=== PATIENT | male | born 1980 | race Caucasian/White ===

== ENCOUNTER 2023-10-22 17:54 | Emergency (ER) | payer OTHER, SELFPAY ==
[2023-10-22 18:02] VITALS: BP 144/74
--- NOTE | 2023-10-22 23:04 | ED.GENMED ---
History of Present Illness
General
Chief Complaint: Throat Problem
Source: patient
Exam Limitations: none
Time Seen by Provider: 10/22/23 20:06
Nursing documentation reviewed up to this point in time: agreed with
Travel History
Have you had any contact with someone who has COVID-19?: No
Do you have any symptoms of coronavirus? Fever > 100 degrees, chills, cough, shortness of breath, sore throat, loss of taste or smell, muscle aches, or headache?: No
History of Present Illness
History of Present Illness:
42-year-old male with history of being weaned off methadone, states he has 'lumps in my cheeks and in my throat.' He also has pain along the right side of his neck and 'my tongue feels like I burned it.'
He states he had an esophagram at [facility] on 06/2023 which was clear and he was told he had acid reflux.
He states he was told he is too young to have oral cancer. He smoked for 30 years and stopped 4 months ago. He denies alcohol intake.
Past History
Past History
ED Past Medical History: Other (Hep C, substance abuse)
ED Past Surgical History: None
Social History
Tobacco: Smoker
Alcohol: Occasional
Drug: Former user and Marijuana
Personal: Single
Living: with family
Employment: Employed
Review of Systems
Review of Systems
Allergies reviewed?: Yes
All Other Systems: ROS reviewed and negative except as documented in HPI and ROS
Constitutional: Denies fever
EENT: Reports other ('bumps' in mouth and throat); Denies mouth pain or mouth swelling
Respiratory: Reports no symptoms
Cardiac: Denies chest pain
ABD/GI: Denies abdominal pain or nausea
Musculoskeletal: Reports no symptoms
Skin: Reports no symptoms
Neurological: Reports no symptoms
Phy Exam
Physical Exam
Physical Exam:
GENERAL: No acute distress. A&Ox3.
CONSTITUTIONAL: Afebrile.
EYES: clear, conjunctivae normal
Neck: Supple, mild tenderness to palpate along right side neck, full ROM, no palpable lymphadenopathy, speaking and swallowing well.
ENMT: moist mucus membranes, Pharynx nl, small patch of tiny skin colored lesions on right soft palate, no open areas, no swelling, no bleeding or drainage. Tonsils appear normal. Tongue appears normal. TMs normal. Good dentition.
RESPIRATORY: Regular respirations, nonlabored, lungs clear.
CARDIOVASCULAR: Regular rate and rhythm, no murmurs, no rubs.
MUSCULOSKELETAL: Moves with ease. Well perfused.
SKIN: Warm, dry, pink
PSYCH: Normal mood and affect. Well kept, interactive and appropriate
NEUROLOGIC: Awake, alert and oriented. No focal neurological deficits
Course
Orders/Labs/Results
Orders:
Orders
10/22/23 20:19
CR Soft Tissue Neck Urgent
Comment:
Reason For Exam: feels swelling front of throat, right side neck
Vital Signs
Initial and Last Documented VS:
Initial Vital Signs
Temp Pulse Resp BP Pulse Ox
97.9 F 81 20 144/74 97
10/22/23 18:02 10/22/23 18:02 10/22/23 18:02 10/22/23 18:02 10/22/23 18:02
Last Documented Vital Signs
Temp Pulse Resp BP Pulse Ox
97.9 F 68 20 126/77 97
10/22/23 18:02 10/22/23 23:11 10/22/23 18:02 10/22/23 23:11 10/22/23 23:11
MDM/Problems Addressed
Differential Diagnosis Includes:
swelling of esophagus/trachea, obstruction
MDM/Problems Addressed:
42-year-old male with history of being weaned off methadone, states he has 'lumps in my cheeks and in my throat.' He also has pain along the right side of his neck and 'my tongue feels like I burned it.'
He states he had an esophagram at [facility] on 06/2023 which was clear and he was told he had acid reflux.
He states he was told he is too young to have oral cancer. He smoked for 30 years and stopped 4 months ago. He denies alcohol intake.
Patient appears in no distress. No difficulty speaking or swallowing.
He is insistent that he has lesions in his mouth and trouble speaking and swallowing
There are no significant lesions, a few very tiny patches of skin colored lesions on the right soft palate, nothing pathologic appearing, no swelling, no lymphadenopathy, no trismus, has full range of motion of neck
Patient insistent that there is something in his throat
Soft tissue lateral neck: Radiology report read, no radiologic evidence for soft tissue abnormality in the neck.
Patient reassured, referred to ENT
*Critical Care Note
Total Time (30-74mins, 75-104mins- exclusive of procedures): Not Applicable
ED Attending Note
-
Portions of this chart may have been created with voice recognition software.� Occasional wrong word or��sound alike� substitutions may have occurred due to the inherent limitations of voice recognition software.
Discharge Plan
Departure
Patient Disposition: Home (Routine Discharge)
Date of Disposition: 10/22/23
Time of Disposition: 22:59
Patient with high blood pressure during this ER visit?: No
Condition: Good
Discharge Problem:
Globus sensation
Instructions: Dysphagia (DC)
Prescriptions:
No Action
methadone 10 MG tablet
170 mg PO DAILY
ciprofloxacin HCl 1 DROP drops
1 drp ophthalmic (eye) Q4H Qty: 1 0RF
Referrals:
Carlos Concepcion MD [Active] - Next open appointment
NONE,* [Family Provider] -
Activity Restrictions/Additional Instructions:
As we discussed, I see nothing worrisome in your exam.
The x-ray of your neck shows nothing worrisome, specifically nothing obstructing your airway or your esophagus.
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
Interventions
Interventions:
*Risk Screen - Suicide Last Done: 10/22/23 19:58
*General Assessment Last Done: 10/22/23 19:58
*Neglect/Abuse Screening Last Done: 10/22/23 19:58
ED- Fall Risk Assessment Last Done: 10/22/23 19:58
*ED COVID-19 Vaccine History Last Done: 10/22/23 18:11
*Nursing Disposition Last Done: 10/22/23 23:11
ED-EENT Assessment Last Done: 10/22/23 19:58
ED- Pulmonary Assessment Last Done: 10/22/23 19:58
Discharge Date and Time
Discharge Date/Time: 10/22/23 23:12
[2023-10-22 23:08] VITALS: BP 126/77
[2023-10-22 23:11] VITALS: BP 126/77
== END 2023-10-22 23:12 | disposition home or self-care (01) ==
LOC: EMR 17:54
PROVIDERS: EMERGENCY PHYSICIAN Emergency Medicine
DX: R09.A2 Foreign body sensation, throat (principal); F17.200 Nicotine dependence, unspecified, uncomplicated; K21.9 Gastro-esophageal reflux disease without esophagitis
CPT/HCPCS: 99283; 70360

== ENCOUNTER 2024-07-10 13:49 | Emergency (ER) | payer OTHER, SELFPAY ==
[2024-07-10 13:50] VITALS: BP 124/83
[2024-07-10 14:48] VITALS: BMI 24.5
--- NOTE | 2024-07-10 15:01 | ED.GENMED ---
History of Present Illness
General
Chief Complaint: Wound Check/Suture Removal
Time Seen by Provider: 07/10/24 13:57
History of Present Illness
History of Present Illness:
43-year-old male presents to the emergency department for evaluation of left thumb redness and swelling, he had an injury 1 week ago and sutures were placed by an outside urgent care. He is concerned that the wound appears to be red and warm and
has difficulty flexing the thumb. No fevers or chills
Past History
Past History
ED Past Medical History: Other (Hep C, substance abuse)
ED Past Surgical History: None
Social History
Tobacco: Smoker
Alcohol: Occasional
Drug: Former user and Marijuana
Personal: Single
Living: with family
Employment: Employed
Review of Systems
Review of Systems
Allergies reviewed?: Yes
All Other Systems: ROS reviewed and negative except as documented in HPI and ROS
Phy Exam
Physical Exam
Physical Exam:
GEN: Well appearing, NAD, WDWN
HEENT: Oral mucosa moist, no scleral icterus
Cardiac: Regular rate
Lung: No respiratory distress, no tachypnea
MSK: No gross deformity or injuries
Skin: Good color, no pallor or jaundice, mild erythema to the extensor surface of the left thumb assessment aspiration, 5 intact external sutures with mild dehiscence, no lisa purulent discharge, no diffuse digital edema
Neuro: AO x3, moves all extremities freely
Psych: Calm, cooperative
Course
Orders/Labs/Results
Orders:
Orders
07/10/24 14:07
CR Finger(s)/thumb Min 2 Vw Lt Urgent
Comment:
Reason For Exam: swelling/pain
07/10/24 15:14
Mupirocin [Bactroban 2% Ointment] 1 applic TOPICAL NOW STA
Vital Signs
Initial and Last Documented VS:
Initial Vital Signs
Temp Pulse Resp BP Pulse Ox
97.8 F 60 16 124/83 98
07/10/24 13:50 07/10/24 13:50 07/10/24 13:50 07/10/24 13:50 07/10/24 13:50
Last Documented Vital Signs
Temp Pulse Resp BP Pulse Ox
97.8 F 60 16 124/83 98
07/10/24 13:50 07/10/24 13:50 07/10/24 13:50 07/10/24 13:50 07/10/24 13:50
MDM/Problems Addressed
MDM/Problems Addressed:
Sutures removed and wound irrigated, will treat with antibiotics both topical and oral
*Critical Care Note
Total Time (30-74mins, 75-104mins- exclusive of procedures): Not Applicable
ED Attending Note
-
Portions of this chart may have been created with voice recognition software.� Occasional wrong word or��sound alike� substitutions may have occurred due to the inherent limitations of voice recognition software.
Discharge Plan
Departure
Patient Disposition: Home (Routine Discharge)
Date of Disposition: 07/10/24
Time of Disposition: 15:01
Patient with high blood pressure during this ER visit?: No
Discharge Problem:
Infected wound
Instructions: Wound Care (DC)
Prescriptions:
New
cephalexin 500 mg capsule
500 mg PO Q6H 7 Days Qty: 28 0RF
mupirocin 2 % ointment
1 applic topical TID Qty: 15 0RF
No Action
methadone 10 MG tablet
170 mg PO DAILY
ciprofloxacin HCl 1 DROP drops
1 drp ophthalmic (eye) Q4H Qty: 1 0RF
Referrals:
Ozzy Lagunas MD [Family Provider] -
Interventions
Interventions:
*Risk Screen - Suicide Last Done: 07/10/24 14:49
*General Assessment Last Done: 07/10/24 14:49
*Neglect/Abuse Screening Last Done: 07/10/24 14:49
ED- Fall Risk Assessment Last Done: 07/10/24 14:50
*ED COVID-19 Vaccine History Last Done: 07/10/24 14:49
*Nursing Disposition Last Done: 07/10/24 15:49
ED-Skin Assessment Last Done: 07/10/24 14:50
Discharge Date and Time
Discharge Date/Time: 07/10/24 15:50
Print Language: CITIZEN OF [place]
== END 2024-07-10 15:50 | disposition home or self-care (01) ==
LOC: EMR 13:49
PROVIDERS: EMERGENCY PHYSICIAN Emergency Medicine; FAMILY PHYSICIAN Internal Medicine
DX: S61.002A Unspecified open wound of left thumb without damage to nail, initial encounter (principal); L08.9 Local infection of the skin and subcutaneous tissue, unspecified; X58.XXXA Exposure to other specified factors, initial encounter; F17.200 Nicotine dependence, unspecified, uncomplicated
CPT/HCPCS: 99283; 73140

== ENCOUNTER 2024-08-20 20:16 | Emergency (ER) | payer OTHER, SELFPAY ==
[2024-08-20 20:24] VITALS: BP 117/57
--- NOTE | 2024-08-20 21:05 | ED.SKININJ ---
HPI-Injury
General
Chief Complaint: Skin Surface Trauma
Source: patient
Exam Limitations: none
Time Seen by Provider: 08/20/24 20:34
History of Present Illness-Injury
Is this injury a work related problem?: No
Is pt an associate of [facility]?: No
Initial Injury comments:
This is a 43 year old male that comes in with c/o cuts to the thumb and index finger. States that he was deboning a piece of meat and he put the knife down and turned. States that he must have brushed the knife and it started to fall and he went to
grab the knife. State that it went under the index finger and cut the thumb and pocked the cut the index finger. Denies any fever, chills, chest pain, SOB, abd pain, nausea, vomiting, diarrhea, headache and dizziness.
Past History
Past History
ED Past Medical History: Psychiatric (Depression) and Other (Hep C and was treated, substance abuse)
ED Past Surgical History: Orthopedic (Right hand surgery, Right foot surgery)
Social History
Tobacco: Former smoker
Alcohol: Occasional
Drug: Former user and Marijuana
Personal: Single
Living: with family
Employment: Employed
Review of Systems
Review of Systems
All Other Systems: ROS reviewed and negative except as documented in HPI and ROS
Constitutional: Reports no symptoms; Denies fever or chills
EENT: Reports no symptoms
Respiratory: Reports no symptoms; Denies cough or trouble breathing
Cardiac: Reports no symptoms; Denies chest pain
ABD/GI: Reports no symptoms; Denies abdominal pain, nausea, vomiting or diarrhea
: Reports no symptoms
Musculoskeletal: Reports no symptoms
Skin: Reports other (laceration to the right index finger and superficial laceration right thumb)
Neurological: Reports no symptoms
Psychiatric: Reports no symptoms
Skin Exam
Laceration
Right Proximal Second Finger:
Length in cm: 2
Orientation: horizontal
Type of Laceration: simple
Any active bleeding?: low grade venous oozing
Distal skin color and temperature: normal-warm & good color
Normal distal neurovascular exam: Yes
Range of motion: full
Right Middle First Finger:
Length in cm: 2.5
Orientation: horizontal
Type of Laceration: simple
Any active bleeding?: low grade venous oozing
Distal skin color and temperature: normal-warm & good color
Normal distal neurovascular exam: Yes
Range of motion: full
Phy Exam
General Physical Exam
General Presentation: well appearing and no apparent distress
General age: appears stated age
General Skin: warm and dry
General Habitus: normal
General Mental: alert
General Hydration: appears well hydrated
Eye Exam
Eye Exam: EOMI
Musculoskeletal Exam
Musculoskeletal Exam: full ROM
Skin Exam
Skin Exam: normal color, warm/dry, no rash, no petechia and laceration (Small to the right index finger, Patient able to bend finger without difficulty. Superficial laceration to the right thumb. )
Psychiatric Exam
Psychiatric Exam: normal mood/affect
Course
Orders/Labs/Results
Orders:
Orders
08/20/24 21:05
Tetanus/Diphth/Acelpertussis [Adacel] 0.5 ml IM .ONCE ONE
Vital Signs
Initial and Last Documented VS:
Initial Vital Signs
Temp Pulse Resp BP Pulse Ox
98.0 F 63 19 117/57 98
08/20/24 20:24 08/20/24 20:24 08/20/24 20:24 08/20/24 20:24 08/20/24 20:24
Last Documented Vital Signs
Temp Pulse Resp BP Pulse Ox
98.0 F 63 19 117/57 98
08/20/24 20:24 08/20/24 20:24 08/20/24 20:24 08/20/24 20:24 08/20/24 20:24
Procedures
Laceration Closure
Right Second Finger:
Status of Wound: clean
Size of Wound in cm: 2
Description of Wound Edges: sharp
Preparation: cleaned with saline
Anesthesia: 1% Lidocaine
Revision/Debridement: routine- no revision
Wound exploration: explored to base- no FB
Type of Closure: single layer closure
Skin Closure Material: 4-0 nylon
Number of sutures: 2
Right First Finger:
Status of Wound: clean
Size of Wound in cm: 2.5
Description of Wound Edges: sharp
Preparation: cleaned with saline
Wound exploration: explored to base- no FB
Type of Closure: Dermabond-skin glue
MDM/Problems Addressed
Differential Diagnosis Includes:
laceration index finger and Thumb right hand
MDM/Problems Addressed:
This is a 43 year old male that comes in with c/o cuts to the thumb and index finger on the right hand from a knife
Right index finger was suture and the thumb is superficial and was glued with steri strips. Patient was given Adacel. Will have patient follow up with the family doctor in 10-14 days for suture removal. Patient to keep the fingers dry for the next
24 hours and then gently pat the area. Patient is not to pull on the steri strips as they will fall off in about 7 days. Patient to return with any concerns.
Chronic conditions affecting care:
NA
Acute Exacerbation and/or Progression of Chronic Illness:
NA
*Pulse Oximetry
Patient hypoxic: no
*EKG
Interpreted by ED Provider?: NA
Rate: EKG- N/A
*Flight Controls Engineer Interpretation
Rate: Flight Controls Engineer- N/A
*Critical Care Note
Total Time (30-74mins, 75-104mins- exclusive of procedures): Not Applicable
ED Attending Note
-
Portions of this chart may have been created with voice recognition software.� Occasional wrong word or��sound alike� substitutions may have occurred due to the inherent limitations of voice recognition software.
Discharge Plan
Departure
Patient Disposition: Home (Routine Discharge)
Date of Disposition: 08/20/24
Time of Disposition: 21:16
Patient with high blood pressure during this ER visit?: No
Condition: Good
Covid-19: Not Applicable
Discharge Problem:
Laceration of right index finger, Superficial laceration of thumb
Instructions: Laceration Repair With Glue (DC), Laceration Repair With Stitches (DC)
Prescriptions:
No Action
methadone 10 MG tablet
170 mg PO DAILY
ciprofloxacin HCl 1 DROP drops
1 drp ophthalmic (eye) Q4H Qty: 1 0RF
cephalexin 500 mg capsule
500 mg PO Q6H 7 Days Qty: 28 0RF
mupirocin 2 % ointment
1 applic topical TID Qty: 15 0RF
Referrals:
Ozzy Lagunas MD [Family Provider] - Follow up in 10 days
Activity Restrictions/Additional Instructions:
As discussed, your index finger has 2 suture that will need to be removed in the next 10-14 days. The thumb has been glued with steri strips and they will fall off on there own. If you pull them the glue will come off with it. Please keep your hand
dry for the next 24 hours and then after this you may gently pat the area but do not scrub. You may use Tylenol or Ibuprofen as needed for pain. IF YOU HAVE ANY REDNESS, SWELLING OR YOU HAVE ANY OTHER CONCERNS PLEASE RETURN TO THE EMERGENCY ROOM.
Interventions
Interventions:
*Risk Screen - Suicide Last Done: 08/20/24 20:24
*General Assessment Last Done: 08/20/24 20:24
*Neglect/Abuse Screening Last Done: 08/20/24 20:24
Discharge Date and Time
Print Language: [id number]
[2024-08-20 21:54] VITALS: BP 111/61
[2024-08-20] MEDS: ADACEL 0.5 ML IM (21:58)
== END 2024-08-20 22:02 | disposition home or self-care (01) ==
LOC: EMR 20:16
PROVIDERS: EMERGENCY PHYSICIAN Emergency Medicine; FAMILY PHYSICIAN Internal Medicine
DX: S61.011A Laceration without foreign body of right thumb without damage to nail, initial encounter (principal); S61.210A Laceration without foreign body of right index finger without damage to nail, initial encounter; W26.0XXA Contact with knife, initial encounter; Z23 Encounter for immunization; F32.A Depression, unspecified; F19.10 Other psychoactive substance abuse, uncomplicated; Z86.19 Personal history of other infectious and parasitic diseases; Z87.891 Personal history of nicotine dependence
CPT/HCPCS: 99282; 12001; 90471; 90715

== ENCOUNTER 2025-03-22 00:57 | Emergency (ER) | payer OTHER, SELFPAY ==
[2025-03-22 01:01] VITALS: BP 123/69
[2025-03-22 01:31] VITALS: BMI 23.2
--- NOTE | 2025-03-22 02:15 | ED.GENMED ---
History of Present Illness
General
Chief Complaint: Eye Problems
Source: patient
Exam Limitations: none
Time Seen by Provider: 03/22/25 01:41
Nursing documentation reviewed up to this point in time: agreed with
History of Present Illness
History of Present Illness:
This is a 44-year-old gentleman with remote history of opioid use disorder, maintained on methadone. Remote history of hepatitis C previously treated. He presents with complaints of left eye pain, foreign body sensation and notes while at work
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 Mild irritation initially which promptly resolved but then this evening around 6 PM he developed recurrent left eye irritation, tearing and
foreign body sensation. He denies vision difficulty. No headache. He has attempted to rinse his eye with only mild temporary relief.
Up-to-date with Tdap having received this August 2024.
He does not wear corrective lenses nor contacts.
Past History
Past History
ED Past Medical History: Psychiatric (Depression) and Other (Hep C and was treated, substance abuse)
ED Past Surgical History: Orthopedic (Right hand surgery, Right foot surgery)
Social History
Tobacco: Former smoker
Alcohol: Occasional
Drug: Former user and Marijuana
Personal: Single
Living: with family
Employment: Employed
Family History
Family History: Other (Noncontributory)
Phy Exam
Physical Exam
Physical Exam:
GENERAL: 44-year-old gentleman appears his stated age. Awake and alert, pleasant, appears mildly uncomfortable, intermittently dabbing and rubbing at his left eye. is accompanying.
EYE: pupils equal and reactive. Extraocular muscles intact. Mild tearing from left eye. There is no chemosis. Mild conjunctival injection of left eye. Visual acuity grossly intact bilaterally. Anicteric. Significant improvement in left eye
discomfort after tetracaine instilled. Left eye examined with fluorescein stain and Mancilla lamp revealing a tiny superficial corneal abrasion lateral aspect. No foreign body visualized. Upper lid everted and blind sweep with cotton swab under
upper lid reveals no foreign body.
NECK: Supple, nontender, no meningismus, no significant adenopathy.
ENT: oral mucosa is moist.
CARDIAC: Regular rate and rhythm. no murmur.
LUNGS: no acute respiratory distress
NEUROLOGICAL: Alert and oriented x3, no focal neuro deficits. Gait is ibrahim and steady.
SKIN: Warm and dry, normal color, skin intact. No rash.
MUSCULOSKELETAL: No C/C/E. Nontender.
PSYCH: Normal and appropriate interaction.
Course
Orders/Labs/Results
Orders:
Orders
03/22/25 02:14
Gentamicin [Genoptic 0.3% Eye Drops] See Dose Instructions OPHTH NOW STA
Vital Signs
Initial and Last Documented VS:
Initial Vital Signs
Temp Pulse Resp BP Pulse Ox
98.3 F 65 20 123/69 98
03/22/25 01:01 03/22/25 01:01 03/22/25 01:01 03/22/25 01:01 03/22/25 01:01
Last Documented Vital Signs
Temp Pulse Resp BP Pulse Ox
98.3 F 65 20 123/69 98
03/22/25 01:01 03/22/25 01:01 03/22/25 01:01 03/22/25 01:01 03/22/25 01:01
MDM/Problems Addressed
Differential Diagnosis Includes:
Patient presents with foreign body sensation left eye and exam notable for small superficial corneal abrasion lateral aspect.
No foreign body visualized.
Marked improvement in discomfort after tetracaine instilled.
Will initiate short course of gentamicin and continue tetracaine over the next 24 hours as needed for discomfort.
Recommend follow-up with ophthalmology for recheck.
*Pulse Oximetry
SaO2: 98
Oxygen Mode of Delivery: Room air
Patient hypoxic: no
*Critical Care Note
Total Time (30-74mins, 75-104mins- exclusive of procedures): Not Applicable
ED Attending Note
-
Portions of this chart may have been created with voice recognition software.� Occasional wrong word or��sound alike� substitutions may have occurred due to the inherent limitations of voice recognition software.
Discharge Plan
Departure
Patient Disposition: Home (Routine Discharge)
Date of Disposition: 03/22/25
Time of Disposition: 02:15
Patient with high blood pressure during this ER visit?: No
Condition: Good
Discharge Problem:
Injury of conjunctiva and corneal abrasion of left eye w/o FB
Instructions: Corneal Abrasion (DC), How to Use Eye Drops
Prescriptions:
New
gentamicin 0.3 % drops
1 drp ophthalmic (eye) QID Qty: 5 0RF
tetracaine HCl 0.5 % drops
1 drp ophthalmic (eye) Q10M PRN (Reason: eye pain) Qty: 2 0RF
No Action
methadone 5 mg/5 mL Solution
2 mg PO DAILY
Referrals:
UNKNOWN - PT DOES,NOT KNOW [Family Provider]
Bharati Urena MD [Active, Ophthalmology] - Call in 1-3 days for appt
Interventions
Interventions:
*Risk Screen - Suicide Last Done: 03/22/25 01:01
*General Assessment Last Done: 03/22/25 01:01
*Neglect/Abuse Screening Last Done: 03/22/25 01:01
*ED- Fall Risk Assessment Last Done: 03/22/25 01:01
*ED COVID-19 Vaccine History Last Done: 03/22/25 01:01
Discharge Date and Time
Print Language: INDONESIAN
[2025-03-22] MEDS: GENOPTIC 0.3% EYE DROPS 1 DROP OPHTH (02:27)
== END 2025-03-22 02:31 | disposition home or self-care (01) ==
LOC: EMR 00:57
PROVIDERS: EMERGENCY PHYSICIAN Emergency Medicine
DX: S05.02XA Injury of conjunctiva and corneal abrasion without foreign body, left eye, initial encounter (principal); Z87.891 Personal history of nicotine dependence
CPT/HCPCS: 99283